=== PATIENT | male | born 1990 | race Caucasian/White ===

== ENCOUNTER 2025-04-10 07:35 | Emergency (ER) | payer MEDICAID ==
[~2025-04-10] VITALS: Ht 175.3 cm; Wt 85.0 kg
[2025-04-10 07:40] VITALS: TEMP 36.7; O2SAT 99
[2025-04-10] MEDS: IBUPROFEN 200MG TABLET PO SCH (09:05)
[2025-04-10] MEDS ORDERED: IBUP-2028 PO (09:58)
[2025-04-10 10:25] VITALS: BP 102/68; PULSE 74; RESP 12; O2SAT 100
== END 2025-04-10 10:26 | disposition home or self-care (01) ==
LOC: ER 07:35
DX: R51.9 Headache, unspecified (principal); R53.1 Weakness; R11.0 Nausea; R63.0 Anorexia
CPT/HCPCS: 99282